=== PATIENT | male | born 1960 | race Caucasian/White ===

== ENCOUNTER 2021-05-18 09:05 | Inpatient (IN) | payer BC, SELFPAY ==
[2021-05-18 14:31] VITALS: BMI 31.8
[2021-05-18] MEDS ORDERED: Acetaminophen/Codeine 30-300mg Tablet PO PRN ×2 (18:04)
[2021-05-18] MEDS ORDERED: Fenofibrate Nanocrystallized 145 MG TAB PO SCH (21:00)
[2021-05-18] MEDS: Pregabalin 50 MG CAP PO SCH (21:02)
[2021-05-18] MEDS: predniSONE 50 MG TAB PO SCH (21:03)
[2021-05-18 21:26] LABS: SARS-CoV-2 PCR by NAA Not Detected (NotDetected)
[2021-05-19] MEDS: Aspirin 81 mg Enteric Coated Tablet PO SCH (09:54)
[2021-05-19] MEDS: Hydrochlorothiazide 25 MG TAB PO SCH (09:55)
[2021-05-19] MEDS: metFORMIN XR 500 MG TAB PO SCH (09:55)
[2021-05-19] MEDS: Valsartan 80 MG TAB PO SCH (09:55)
[2021-05-19] MEDS ORDERED: HumaLOG 300 UNITS/3 ML VIAL SC PRN (13:15)
[2021-05-19] MEDS ORDERED: Dextrose 50% Abboject 50 ML SYRINGE IVP PRN (13:15)
[2021-05-19] MEDS ORDERED: Dextrose 5% in Water 1,000 ML IV PRN (13:15)
[2021-05-19] MEDS ORDERED: Ferrous Sulfate 325 MG TAB PO SCH (14:00)
[2021-05-19] MEDS ORDERED: Zinc Sulfate 220 MG CAP PO SCH (14:00)
[2021-05-19] MEDS: Pregabalin 50 MG CAP PO SCH (20:27)
[2021-05-19] MEDS: predniSONE 50 MG TAB PO SCH (20:27)
[2021-05-20] MEDS: Aspirin 81 mg Enteric Coated Tablet PO SCH (07:45)
[2021-05-20] MEDS: Valsartan 80 MG TAB PO SCH (07:45)
[2021-05-20] MEDS: Hydrochlorothiazide 25 MG TAB PO SCH (07:45)
[2021-05-20] MEDS: metFORMIN XR 500 MG TAB PO SCH (07:45)
[2021-05-20] MEDS ORDERED: Triamcinolone 40 MG/ML VIAL ONE (09:01)
[2021-05-20] MEDS ORDERED: Bupivacaine 0.25% 10 ML VIAL ONE (09:02)
[2021-05-20] MEDS ORDERED: Iothalamate Meglumine 60% 50 ML VIAL FS ONE (09:09)
[2021-05-20 10:00] VITALS: BP 114/73; TEMP 97.6
[2021-05-23] MEDS ORDERED: BUTRANS TOP SCH (16:00)
== END 2021-05-20 12:16 | disposition home or self-care (01) | DRG 552 ==
LOC: T4-B 14:11
PROVIDERS: ADMIT Neurological Surgery; ATTEND Neurological Surgery
PROC: 3E0S33Z Introduction of Anti-inflammatory into Epidural Space, Percutaneous Approach (ICD-10-PCS; principal; 2021-05-20)
PROC: 3E0S3BZ Introduction of Anesthetic Agent into Epidural Space, Percutaneous Approach (ICD-10-PCS; 2021-05-20)
DX: M51.26 Other intervertebral disc displacement, lumbar region (principal); Z20.822 Contact with and (suspected) exposure to COVID-19; Z79.52 Long term (current) use of systemic steroids; Z79.899 Other long term (current) drug therapy
CPT/HCPCS: 36416; 72020; 72148; 76000; 76770; J1815; J3301; J7512; Q9961-U8; S0020; U0003; U0005

== ENCOUNTER 2021-07-31 06:21 | Day surgery (SDC) | payer BC ==
[2021-07-29 14:38] VITALS: BMI 28.7
[2021-07-31] MEDS ORDERED: Bupivacaine PF 0.5% 30 ML VIAL ONE (06:33)
[2021-07-31] MEDS ORDERED: EPINEPHrine 1 MG/ML AMP ONE (06:33)
[2021-07-31] MEDS ORDERED: Thrombin 5000 UNITS/5 ML VIAL ONE (06:33)
[2021-07-31] MEDS ORDERED: CEFAZOLIN 2 GM VIAL ONE ×2 (06:45→12:02)
[2021-07-31] MEDS ORDERED: Lidocaine 1% MPF 2 ML VIAL ONE (06:45)
[2021-07-31] MEDS ORDERED: Sodium Chloride 0.9% 100 ML ONE ×2 (06:45→12:02)
[2021-07-31] MEDS ORDERED: Midazolam HCl 2 mg/2 ml Vial ONE (06:54)
[2021-07-31] MEDS ORDERED: fentaNYL Citrate/PF 100 MCG/2 ML SYRINGE ONE (06:55)
[2021-07-31] MEDS ORDERED: Tamsulosin HCl 0.4 MG CAP ONE (09:45)
== END 2021-07-31 12:32 | disposition home or self-care (01) ==
LOC: SDC 06:21
PROVIDERS: ATTEND Neurological Surgery
PROC: 01NB0ZZ Release Lumbar Nerve, Open Approach (ICD-10-PCS; principal; 2021-07-31)
PROC: 0SB20ZZ Excision of Lumbar Vertebral Disc, Open Approach (ICD-10-PCS; principal; 2021-07-31)
DX: M51.16 Intervertebral disc disorders with radiculopathy, lumbar region (principal); Z79.82 Long term (current) use of aspirin; Z79.84 Long term (current) use of oral hypoglycemic drugs; Z79.899 Other long term (current) drug therapy
CPT/HCPCS: 76000; C1713; J0171; J0690; J2250; J3490; S0020